=== PATIENT | male | born 1935 | race Hispanic/Latino ===

== ENCOUNTER 2022-07-10 06:31 | Day surgery (SDC) | payer OTHER ==
[2022-07-10] MEDS ORDERED: Ringers Lactate 1,000 ML IV ONE (07:01)
[2022-07-10] MEDS ORDERED: LIDOCAINE 1% MPF 5 ML VIAL ONE (07:54)
[2022-07-10] MEDS ORDERED: propofoL 200 MG/20 ML VIAL IV ONE (07:54)
[2022-07-10 08:50] VITALS: BP 164/72; TEMP 97.7; O2SAT 97
== END 2022-07-10 09:27 | disposition home or self-care (01) ==
LOC: OR 06:31
PROVIDERS: ATTEND Internal Medicine Gastroenterology
PROC: 0DBN8ZX Excision of Sigmoid Colon, Via Natural or Artificial Opening Endoscopic, Diagnostic (ICD-10-PCS; principal; 2022-07-10 07:30)
DX: R10.32 Left lower quadrant pain (principal); K59.00 Constipation, unspecified; R19.4 Change in bowel habit; K64.8 Other hemorrhoids; K57.30 Diverticulosis of large intestine without perforation or abscess without bleeding; K63.5 Polyp of colon; Z86.010 Personal history of colon polyps
CPT/HCPCS: 88305; J2001; J2704; J7120